=== PATIENT | male | born 1950 | race Caucasian/White ===

== ENCOUNTER → 2017-10-01 | Outpatient (CLI) | payer OTHER ==
[~2017-10-01] MED LIST: CARDURA1 MG; CIPRO500 MG PO; COREG CR10 MG; NORVASC10 MG; PLAVIX75 MG
== END | disposition home or self-care (01) ==
LOC: RAD 11:13
DX: M25.562 Pain in left knee (principal)

== ENCOUNTER 2017-12-03 11:42 | Outpatient (CLI) | payer OTHER | END 2017-12-03 16:11 | disposition home or self-care (01) | LOC: RAD 11:42 | DX: M17.12 Unilateral primary osteoarthritis, left knee (principal) ==

== ENCOUNTER 2018-02-09 10:34 | Outpatient (CLI) | payer OTHER | END 2018-02-09 10:55 | disposition home or self-care (01) | LOC: RAD 501 10:34 | DX: I11.9 Hypertensive heart disease without heart failure (principal); M54.5 Low back pain ==

== ENCOUNTER 2018-06-03 11:12 | Outpatient (CLI) | payer OTHER | END 2018-06-03 11:18 | disposition home or self-care (01) | LOC: RAD 501 11:12 | DX: M54.5 Low back pain (principal) ==

== ENCOUNTER 2018-09-01 14:14 | Outpatient (CLI) | payer OTHER | END 2018-09-01 14:19 | disposition home or self-care (01) | LOC: RAD 14:14 | DX: E78.49 Other hyperlipidemia (principal); N39.0 Urinary tract infection, site not specified; I11.9 Hypertensive heart disease without heart failure; J40 Bronchitis, not specified as acute or chronic ==

== ENCOUNTER 2021-08-18 09:57 | Inpatient (IN) | payer OTHER ==
[~2021-08-18] VITALS: Ht 165.1 cm; Wt 68.0 kg
[2021-08-18] MEDS ORDERED: LIPITOR40 M1 (10:06)
[2021-08-28] MEDS ORDERED: ALPRAZOLAM0.5 MG (10:24)
[2021-08-28] MEDS ORDERED: [UNRECOGNIZED DRUG - CODE] (10:25)
[2021-08-28] MEDS ORDERED: ST. JOSEPH ASPI81 M2 (10:25)
== END 2021-08-29 19:29 | disposition home or self-care (01) | DRG 291 ==
LOC: ER 09:57 → ICU-2 15:56 → ICU 08-19 19:54 → MEDI 08-25 12:27
PROVIDERS: ADMIT Internal Medicine; ATTEND Internal Medicine
PROC: BW28ZZZ Computerized Tomography (CT Scan) of Head (ICD-10-PCS; 2021-08-18)
PROC: B24BZZZ Ultrasonography of Heart with Aorta (ICD-10-PCS; 2021-08-18)
PROC: BW24ZZZ Computerized Tomography (CT Scan) of Chest and Abdomen (ICD-10-PCS; 2021-08-20)
PROC: 4A12X4Z Monitoring of Cardiac Electrical Activity, External Approach (ICD-10-PCS; principal; 2021-08-25)
PROC: B030ZZZ Magnetic Resonance Imaging (MRI) of Brain (ICD-10-PCS; 2021-08-26)
DX: I11.0 Hypertensive heart disease with heart failure (principal); I50.23 Acute on chronic systolic (congestive) heart failure; N39.0 Urinary tract infection, site not specified; J90 Pleural effusion, not elsewhere classified; J98.11 Atelectasis; I47.1 Supraventricular tachycardia; I50.1 Left ventricular failure, unspecified; I48.0 Paroxysmal atrial fibrillation; I16.0 Hypertensive urgency; R09.02 Hypoxemia; I34.0 Nonrheumatic mitral (valve) insufficiency; I25.10 Atherosclerotic heart disease of native coronary artery without angina pectoris; R41.82 Altered mental status, unspecified; Z95.1 Presence of aortocoronary bypass graft; Z72.0 Tobacco use; B96.29 Other Escherichia coli [E. coli] as the cause of diseases classified elsewhere; Z20.822 Contact with and (suspected) exposure to COVID-19; E78.49 Other hyperlipidemia
CPT/HCPCS: 70553

== ENCOUNTER 2021-08-29 19:36 | Emergency (ER) | payer OTHER ==
[~2021-08-29] VITALS: Ht 167.6 cm; Wt 90.7 kg
[~2021-08-29 19:36] MED LIST changes: +ALPRAZOLAM0.5 MG; +LIPITOR40 M1; +ST. JOSEPH ASPI81 M2; +[UNRECOGNIZED DRUG - CODE]
== END 2021-08-30 16:48 | disposition home or self-care (01) ==
LOC: ER 19:36
DX: R55 Syncope and collapse (principal)

== ENCOUNTER 2021-09-24 08:38 | Inpatient (IN) | payer OTHER ==
[~2021-09-24] VITALS: Ht 170.2 cm; Wt 72.6 kg
[2021-09-24] MEDS ORDERED: SEROQUEL25 MG PO (08:54)
[2021-09-24] MEDS ORDERED: METOPROLOL SUCC25 MG PO (08:55)
[2021-09-24] MEDS ORDERED: ZOLOFT50 MG PO (08:55)
[2021-09-24] MEDS ORDERED: ELIQUIS PO (08:56)
[2021-09-24] MEDS ORDERED: LOSARTAN POTASS25 MG PO (08:57)
[2021-09-24] MEDS ORDERED: ALDACTONE25 MG PO (08:58)
[2021-09-24] MEDS ORDERED: NICOTINE PATCH1 EAC2 TOP (08:58)
[2021-09-26] MEDS ORDERED: ELIQUIS2.5 MG PO (11:07)
== END 2021-09-27 19:04 | disposition home or self-care (01) | DRG 281 ==
LOC: ER 08:38 → MEDI 16:04 → SEC-K 16:04 → MEDI 09-25 05:12
PROVIDERS: ADMIT Internal Medicine; ATTEND Internal Medicine
PROC: 4A12X4Z Monitoring of Cardiac Electrical Activity, External Approach (ICD-10-PCS; principal; 2021-09-25)
PROC: 3E0F7GC Introduction of Other Therapeutic Substance into Respiratory Tract, Via Natural or Artificial Opening (ICD-10-PCS; 2021-09-25)
PROC: 30233N1 Transfusion of Nonautologous Red Blood Cells into Peripheral Vein, Percutaneous Approach (ICD-10-PCS; 2021-09-25)
DX: I11.0 Hypertensive heart disease with heart failure (principal); I21.3 ST elevation (STEMI) myocardial infarction of unspecified site; N39.0 Urinary tract infection, site not specified; D63.8 Anemia in other chronic diseases classified elsewhere; I50.811 Acute right heart failure; I16.0 Hypertensive urgency; E11.9 Type 2 diabetes mellitus without complications; Z79.4 Long term (current) use of insulin; Z20.822 Contact with and (suspected) exposure to COVID-19

== ENCOUNTER 2021-10-12 09:04 | Inpatient (IN) | payer OTHER ==
[~2021-10-12] VITALS: Ht 175.3 cm; Wt 71.7 kg
[~2021-10-12 09:04] MED LIST changes: +ALDACTONE25 MG PO; +ELIQUIS PO; +ELIQUIS2.5 MG PO; +LOSARTAN POTASS25 MG PO; +METOPROLOL SUCC25 MG PO; +NICOTINE PATCH1 EAC2 TOP; +SEROQUEL25 MG PO; +ZOLOFT50 MG PO
--- NOTE | 2021-10-12 09:19 | NUR ---
SE RECIBE EN AMBULANCIA ALERTA Y ORIENTADO, EL CUAL REFIERE TENER LA ESCRETA OSCURA Y DEBILIDAD.
[2021-10-12] MEDS ORDERED: NORVASC2.5 M1 PO (09:21)
[2021-10-12] MEDS ORDERED: PLAVIX75 MG PO (09:21)
[2021-10-12] MEDS ORDERED: CARVEDILOL12.5 MG PO (09:22)
[2021-10-12] MEDS ORDERED: CARDURA1 MG PO (09:22)
--- NOTE | 2021-10-12 09:50 | NUR ---
SE ORIENTA PTE SOBRE TX A SEGUIR, EL CUAL REFIERE ENTENDER. SE COLECTAN MUESTRAS Y SE CANALIZA PTE UTILIZANDO MEDIDAS ASEPTCAS. SE ADMINISTRAN MEDICAMETOS IRLANDA ORDEN MEDICA. SE HACE ENTREGA DE ENVASE PARA MUESTRA DE US PEND.
--- NOTE | 2021-10-12 10:53 | NUR ---
RAMONITA ZAPATA Y EVALUADO POR DR. CHRISTY.
--- NOTE | 2021-10-12 11:02 | NUR ---
SE COLECTAN MUESTRAS DE ANTIONETTE PARA 3 UNIDADES DE PRBC'S. SE LLAMA A BANCO DE ANTIONETTE DE [employer] Y SE HABLA CON MS IBRAHIM, PARA REQUISAR 3 UNIDADES DE PRBCS FRACCIONADAS. SE ORIENTA PTE SOBRE PROCESO DE TRANSFUSION EL MISMO REFIERE ENTENDER. PTE FIRMA CONSENTIMIENTO.
--- NOTE | 2021-10-12 15:25 | NUR ---
PTE ALERTA Y ORIENTADO X 3 ESFERAS EN FRANCHESCA CON BARANDAS ELEVADAS EN COMPANIA DE FAMILIAR,NO PRESENTA DIFICULTAD RESP NI DOLOR,AREA DE VENOPUNCION PATENTE Y CIERA DE EDEMA CON FLUIDOS DE MANTENIMIENTO,PENDIENTE 3 UNIDADES PRBC PARA TRANSFUNDIR NO DISPONIBLES,PENDIENTE EVALUACION DE DR CAMPBELL.
== END 2021-10-17 17:36 | disposition home or self-care (01) | DRG 812 ==
LOC: ER 09:04 → ICU-2 17:58 → ICU 17:58 → SURH 10-15 21:01
PROVIDERS: ADMIT Internal Medicine; ATTEND Internal Medicine
PROC: 30233N1 Transfusion of Nonautologous Red Blood Cells into Peripheral Vein, Percutaneous Approach (ICD-10-PCS; principal; 2021-10-12)
PROC: 4A12X4Z Monitoring of Cardiac Electrical Activity, External Approach (ICD-10-PCS; 2021-10-16)
DX: D64.9 Anemia, unspecified (principal); N39.0 Urinary tract infection, site not specified; I50.1 Left ventricular failure, unspecified; K92.2 Gastrointestinal hemorrhage, unspecified; B96.20 Unspecified Escherichia coli [E. coli] as the cause of diseases classified elsewhere; I48.0 Paroxysmal atrial fibrillation; I11.0 Hypertensive heart disease with heart failure; I25.10 Atherosclerotic heart disease of native coronary artery without angina pectoris; I27.20 Pulmonary hypertension, unspecified; Z95.1 Presence of aortocoronary bypass graft; G30.9 Alzheimer's disease, unspecified; F02.80 Dementia in other diseases classified elsewhere, unspecified severity, without behavioral disturbance, psychotic disturbance, mood disturbance, and anxiety

== ENCOUNTER 2021-10-27 10:03 | Inpatient (IN) | payer OTHER ==
[~2021-10-27] VITALS: Ht 170.2 cm; Wt 80.7 kg
[~2021-10-27 10:03] MED LIST changes: +CARDURA1 MG PO; +CARVEDILOL12.5 MG PO; +NORVASC2.5 M1 PO; +PLAVIX75 MG PO
== END 2021-11-05 20:34 | disposition home or self-care (01) | DRG 812 ==
LOC: ER 10:03 → SURG 18:29 → MEDJ 18:29 → SURG 10-28 03:26
PROVIDERS: ADMIT Internal Medicine; ATTEND Internal Medicine
PROC: BW21ZZZ Computerized Tomography (CT Scan) of Abdomen and Pelvis (ICD-10-PCS; 2021-10-27)
PROC: 30233N1 Transfusion of Nonautologous Red Blood Cells into Peripheral Vein, Percutaneous Approach (ICD-10-PCS; principal; 2021-10-28)
PROC: 4A12X4Z Monitoring of Cardiac Electrical Activity, External Approach (ICD-10-PCS; 2021-10-28)
PROC: 0DB38ZX Excision of Lower Esophagus, Via Natural or Artificial Opening Endoscopic, Diagnostic (ICD-10-PCS; 2021-11-01)
PROC: 0DB78ZX Excision of Stomach, Pylorus, Via Natural or Artificial Opening Endoscopic, Diagnostic (ICD-10-PCS; 2021-11-01)
PROC: BW21YZZ Computerized Tomography (CT Scan) of Abdomen and Pelvis using Other Contrast (ICD-10-PCS; 2021-11-01)
PROC: 0DBK8ZX Excision of Ascending Colon, Via Natural or Artificial Opening Endoscopic, Diagnostic (ICD-10-PCS; 2021-11-05)
PROC: 0DBL8ZX Excision of Transverse Colon, Via Natural or Artificial Opening Endoscopic, Diagnostic (ICD-10-PCS; 2021-11-05)
DX: D64.9 Anemia, unspecified (principal); K92.1 Melena; N39.0 Urinary tract infection, site not specified; K63.5 Polyp of colon; D13.1 Benign neoplasm of stomach; K57.30 Diverticulosis of large intestine without perforation or abscess without bleeding; I48.0 Paroxysmal atrial fibrillation; I25.10 Atherosclerotic heart disease of native coronary artery without angina pectoris; I11.0 Hypertensive heart disease with heart failure; I50.9 Heart failure, unspecified; Z95.1 Presence of aortocoronary bypass graft

== ENCOUNTER 2022-01-08 12:04 | Inpatient (IN) | payer OTHER ==
[~2022-01-08] VITALS: Ht 152.4 cm; Wt 72.6 kg
== END 2022-01-17 15:20 | DRG 812 ==
LOC: ER 12:04 → SEC-K 19:36 → ICU-2 19:36 → SEC-K 01-10 14:24 → MEDI 01-10 18:49
PROVIDERS: ADMIT Internal Medicine; ATTEND Internal Medicine
PROC: BW21ZZZ Computerized Tomography (CT Scan) of Abdomen and Pelvis (ICD-10-PCS; principal; 2022-01-08)
PROC: 30233N1 Transfusion of Nonautologous Red Blood Cells into Peripheral Vein, Percutaneous Approach (ICD-10-PCS; 2022-01-09)
PROC: 4A12X4Z Monitoring of Cardiac Electrical Activity, External Approach (ICD-10-PCS; 2022-01-11)
DX: D64.89 Other specified anemias (principal); K92.1 Melena; N39.0 Urinary tract infection, site not specified; N17.9 Acute kidney failure, unspecified; I11.0 Hypertensive heart disease with heart failure; I95.89 Other hypotension

== ENCOUNTER 2022-06-10 20:35 | Emergency (ER) | payer OTHER ==
[~2022-06-10] VITALS: Ht 172.7 cm; Wt 68.0 kg
== END 2022-06-10 22:46 | disposition home or self-care (01) ==
LOC: ER 20:35
DX: K29.60 Other gastritis without bleeding (principal); R11.2 Nausea with vomiting, unspecified; I10 Essential (primary) hypertension; Z88.0 Allergy status to penicillin

== ENCOUNTER 2022-07-06 16:30 | Emergency (ER) | payer OTHER ==
[~2022-07-06] VITALS: Ht 160 cm; Wt 72.6 kg
== END 2022-07-06 21:11 | disposition home or self-care (01) ==
LOC: ER 16:30
DX: D64.9 Anemia, unspecified (principal); Z88.0 Allergy status to penicillin

== ENCOUNTER 2022-07-08 11:37 | Inpatient (IN) | payer OTHER ==
[~2022-07-08] VITALS: Ht 167.6 cm; Wt 99.8 kg
[2022-07-08] MEDS ORDERED: ADVIL200 M1 (11:45)
[2022-07-08] MEDS ORDERED: AMLODIPINE-OLM1 EACH (11:45)
[2022-07-08] MEDS ORDERED: 8 HOUR PAIN RE650 M1 PO (11:45)
[2022-07-08] MEDS ORDERED: CARVEDILOL ER40 MG (11:46)
[2022-07-08] MEDS ORDERED: MELATONIN10 MG (11:46)
[2022-07-08] MEDS ORDERED: [UNRECOGNIZED DRUG - OTHER] (11:46)
[2022-07-08] MEDS ORDERED: PRAVASTATIN SOD40 MG (11:47)
[2022-07-08] MEDS ORDERED: TOPROL XL25 M1 (11:47)
[2022-07-08] MEDS ORDERED: PANTOPRAZOLE SO40 M1 (11:47)
[2022-07-08] MEDS ORDERED: ZOLOFT50 MG (11:48)
[2022-07-08] MEDS ORDERED: SPIRONOLACTONE25 MG (11:48)
--- NOTE | 2022-07-08 11:49 | NUR ---
SE RECIBE PACIENTE EN AMBULANCIA ALERTA Y ORIENTADO EN DUSTIN CONG ESFERAS; EL MISMO SE OBSERVA CON CANULA NASAL Y RESPIRACIONES ABDOMINALES. PTE REFIERE SENTIR FALTA DE AIRE. SE MONITOREAN VS, SE PRESENTA A DR. BUENROSTRO QUIEN ORDENA UBICARLO EN UNIDAD DE CRITICO
--- NOTE | 2022-07-08 15:04 | NUR ---
PTE ALERTA Y ORIENTADO EN PERSONA Y LUGAR CON VENTURY MASK A 35%, SATURANDO 97%. ESTA CONECTADO AL MONITOR CARDIACO, NBP Y OXIMETRIA CONTINUA. SE OBSER PTE FIBRILANDO ENTRE 30-66 BPM. TIENE CANALIZACION EN BRAZO DERECHO CON IV FLUIDS DE .9NSS @100ML/HR. PERMANECE PATENTE CIERA DE EDEMA Y ERIETMA. TIENE DIAZ A GRAVEDAD CON ORINA AMARILLA.
--- NOTE | 2022-07-08 15:09 | NUR ---
PENDIENTE CONSULTA CON
--- NOTE | 2022-07-08 18:47 | NUR ---
SE TRANSPORTA A PTE EN FRANCHESCA POR ESCORTA DE [place], CON MONITOR CARDIACO, NBP Y OXIMETRIA CONTINUA, PARA CT DE GENARO. PTE TOLERANDO TRATAMIENTO.
--- NOTE | 2022-07-08 19:58 | NUR ---
LEM TURNO NOTIFICA QUE CT NO FUE COMPLETADO CHEPE Y HAY QUE REALIZARLO OTRA VEZ. SE NOTIFICA A ESCORTA DE [place] PARA REALIZAR CT DE GENARO.
--- NOTE | 2022-07-08 21:00 | NUR ---
SE VUELVE A NOTIFICAR A ESCORTA DE [place] PARA REALIZAR CT DE GENARO. EN ESPERA DE ESCORTA
--- NOTE | 2022-07-08 22:09 | NUR ---
SE LLEVA A PTE A REALIZAR CT DE GENARO POR ESCORTA DE [place], PTE CON MONITOR CARDIACO, NBP Y OXIMETRIA CONTINUA.
== END 2022-07-13 12:19 | disposition home health service (06) | DRG 292 ==
LOC: ER 11:37 → ICU 21:55 → ICU-2 21:55 → ICU 07-09 02:26 → MEDJ 07-10 22:05
PROVIDERS: ADMIT Internal Medicine; ATTEND Internal Medicine
PROC: B24BZZZ Ultrasonography of Heart with Aorta (ICD-10-PCS; principal; 2022-07-08)
PROC: BW28ZZZ Computerized Tomography (CT Scan) of Head (ICD-10-PCS; 2022-07-08)
PROC: 30233N1 Transfusion of Nonautologous Red Blood Cells into Peripheral Vein, Percutaneous Approach (ICD-10-PCS; 2022-07-09)
PROC: 4A12X4Z Monitoring of Cardiac Electrical Activity, External Approach (ICD-10-PCS; 2022-07-11)
DX: I13.0 Hypertensive heart and chronic kidney disease with heart failure and stage 1 through stage 4 chronic kidney disease, or unspecified chronic kidney disease (principal); G93.1 Anoxic brain damage, not elsewhere classified; N17.9 Acute kidney failure, unspecified; I48.92 Unspecified atrial flutter; I50.30 Unspecified diastolic (congestive) heart failure; N18.9 Chronic kidney disease, unspecified; R06.02 Shortness of breath; I48.0 Paroxysmal atrial fibrillation; Z95.1 Presence of aortocoronary bypass graft; I25.10 Atherosclerotic heart disease of native coronary artery without angina pectoris; D63.1 Anemia in chronic kidney disease; R41.82 Altered mental status, unspecified; F17.200 Nicotine dependence, unspecified, uncomplicated; Z20.822 Contact with and (suspected) exposure to COVID-19; E78.5 Hyperlipidemia, unspecified; Z74.01 Bed confinement status

== ENCOUNTER 2022-07-25 17:38 | Inpatient (IN) | payer OTHER ==
[~2022-07-25] VITALS: Ht 167.6 cm; Wt 54.4 kg
[~2022-07-25 17:38] MED LIST changes: +8 HOUR PAIN RE650 M1 PO; +ADVIL200 M1; +AMLODIPINE-OLM1 EACH; +CARVEDILOL ER40 MG; +MELATONIN10 MG; +PANTOPRAZOLE SO40 M1; +PRAVASTATIN SOD40 MG; +SPIRONOLACTONE25 MG; +TOPROL XL25 M1; +ZOLOFT50 MG; +[UNRECOGNIZED DRUG - OTHER]
== END 2022-07-30 13:14 | disposition home or self-care (01) | DRG 308 ==
LOC: ER 17:38 → MEDI 22:49
PROVIDERS: ADMIT Internal Medicine; ATTEND Internal Medicine
PROC: B24BYZZ Ultrasonography of Heart with Aorta using Other Contrast (ICD-10-PCS; principal; 2022-07-26)
PROC: 4A12X4Z Monitoring of Cardiac Electrical Activity, External Approach (ICD-10-PCS; 2022-07-26)
DX: I47.1 Supraventricular tachycardia (principal); I50.33 Acute on chronic diastolic (congestive) heart failure; N17.9 Acute kidney failure, unspecified; N39.0 Urinary tract infection, site not specified; I11.0 Hypertensive heart disease with heart failure; Z74.01 Bed confinement status; I12.9 Hypertensive chronic kidney disease with stage 1 through stage 4 chronic kidney disease, or unspecified chronic kidney disease; N18.30 Chronic kidney disease, stage 3 unspecified; D64.9 Anemia, unspecified; I25.10 Atherosclerotic heart disease of native coronary artery without angina pectoris

== ENCOUNTER 2022-08-05 20:33 | Inpatient (IN) | payer OTHER ==
[~2022-08-05] VITALS: Ht 172.7 cm; Wt 59.9 kg
== END 2022-08-10 10:58 | disposition home or self-care (01) | DRG 871 ==
LOC: ER 20:33 → SEC-K 23:12 → MEDI 08-06 10:33
PROVIDERS: ADMIT Internal Medicine; ATTEND Internal Medicine
PROC: 4A12X4Z Monitoring of Cardiac Electrical Activity, External Approach (ICD-10-PCS; principal; 2022-08-06)
PROC: 30233N1 Transfusion of Nonautologous Red Blood Cells into Peripheral Vein, Percutaneous Approach (ICD-10-PCS; 2022-08-08)
DX: A41.9 Sepsis, unspecified organism (principal); I50.33 Acute on chronic diastolic (congestive) heart failure; R65.21 Severe sepsis with septic shock; N39.0 Urinary tract infection, site not specified; I13.0 Hypertensive heart and chronic kidney disease with heart failure and stage 1 through stage 4 chronic kidney disease, or unspecified chronic kidney disease; I48.92 Unspecified atrial flutter; N17.9 Acute kidney failure, unspecified; E87.1 Hypo-osmolality and hyponatremia; E86.0 Dehydration; B96.89 Other specified bacterial agents as the cause of diseases classified elsewhere; E78.5 Hyperlipidemia, unspecified; I48.91 Unspecified atrial fibrillation; N18.30 Chronic kidney disease, stage 3 unspecified; D63.1 Anemia in chronic kidney disease; I25.10 Atherosclerotic heart disease of native coronary artery without angina pectoris; Z95.1 Presence of aortocoronary bypass graft; Z20.822 Contact with and (suspected) exposure to COVID-19

== ENCOUNTER 2022-09-17 14:41 | Inpatient (IN) | payer OTHER ==
[~2022-09-17] VITALS: Ht 170.2 cm; Wt 72.6 kg
--- NOTE | 2022-09-17 14:51 | NUR ---
PTE ALERTA Y ORIENTADO POR CONG ESFERAS CON BUEN PATRON RESPIRATORIO, CON CANULA 4LT. VIENE EN FRANCHESCA POR AMBULANCIA POR CAIDA EN EL MANISH DE REBECCA, SE LASTIMO CADERA IZQUIERDA. SE REALIZA EKG Y SE PRESENTA A MEDICO DE TUR[place], SE UBICA EN AREA DE OBSERVACION.
--- NOTE | 2022-09-17 17:02 | NUR ---
SE RECIBE PTE ALERTA ORIENTADO X3.SE BETZY MUESTRAS DE LABORATORIO USANDO MEDIDAS ASEPTICAS.SE ADMINISTRAN MEDICAMENTO IRLANDA ORDEN MEDICA.SE ORIENTA PTE SOBRE OBJETIVO DE [place] MEDICO.
--- NOTE | 2022-09-17 18:50 | NUR ---
SE COLOCA DIAZ UTILIZANDO MEDIDAS ASEPTICAS Y ESTERILES. SE BETZY MUESTRAS DE LABORATORIO UTILIZANDO MEDIDAS ASEPTICAS.
[2022-09-20] MEDS ORDERED: TRAMADOL HCL E100 M1 PO (12:50)
== END 2022-09-20 13:54 | DRG 292 ==
LOC: ER 14:41 → ICU-2 21:03 → ICU 21:03 → SURH 09-19 18:32
PROVIDERS: ADMIT Internal Medicine; ATTEND Internal Medicine
PROC: 4A12X4Z Monitoring of Cardiac Electrical Activity, External Approach (ICD-10-PCS; principal; 2022-09-19)
DX: I13.0 Hypertensive heart and chronic kidney disease with heart failure and stage 1 through stage 4 chronic kidney disease, or unspecified chronic kidney disease (principal); I48.92 Unspecified atrial flutter; N17.8 Other acute kidney failure; I50.9 Heart failure, unspecified; I16.0 Hypertensive urgency; N18.30 Chronic kidney disease, stage 3 unspecified; E78.5 Hyperlipidemia, unspecified; D64.9 Anemia, unspecified; S70.02XA Contusion of left hip, initial encounter; W07.XXXA Fall from chair, initial encounter; Y92.128 Other place in nursing home as the place of occurrence of the external cause; Z74.01 Bed confinement status; Z72.0 Tobacco use